=== PATIENT | female | born 1970 | race Caucasian/White ===

== ENCOUNTER 2019-07-04 13:33 | Emergency (ER) | payer OTHER, SELFPAY ==
--- NOTE | ~2019-07-04 | XR_ITS ---
EXAMINATION: XR knee RT 3V DATE: 07/04/2019 14:04 INDICATION: Anterior right knee pain. TECHNIQUE: 3 views of right knee were obtained. COMPARISON: None. FINDINGS: Bone alignment is normal. No fracture. There is moderate osteoarthritis of medial compartme nt and mild osteoarthritis of lateral and patellofemoral compartments. There is a small knee joint ef fusion. IMPRESSION: 1. Moderate right knee osteoarthritis. 2. Small right knee joint effusion. Reviewed, dictated and finalized at location A.
--- NOTE | ~2019-07-04 | XR_ITS ---
EXAMINATION: XR shoulder LT min 2V DATE: 07/04/2019 14:04 INDICATION: Left shoulder pain. Fall. TECHNIQUE: 4 views of left shoulder were obtained. COMPARISON: None. FINDINGS: Bone alignment is normal. No fracture. Glenohumeral joint is normal. There is mild acromioc lavicular joint osteoarthritis. Median sternotomy wires are noted. IMPRESSION: 1. Mild acromioclavicular joint osteoarthritis. Reviewed, dictated and finalized at location A.
[2019-07-04 13:33] VITALS: BP 141/65; PULSE 84; RESP 20; TEMP 36.4; O2SAT 98
--- NOTE | 2019-07-04 13:56 | ED.GENADULT ---
HPI - General Adult General Chief complaint: Extremity Injury, Lower <ANETA Shannon Last Filed: 07/04/19 14:21> Stated complaint: Fall <ANETA Shannon Last Filed: 07/04/19 14:21> Time Seen by Provider: 07/04/19 13:50 <ANETA Shannon Last Filed: 07/04/19 14:21> Source: patient <ANETA Shannon Last Filed: 07/04/19 14:21> Mode of arrival: ambulatory <ANETA Shannon Last Filed: 07/04/19 14:21> Limitations: no limitations <ANETA Shannon Last Filed: 07/04/19 14:21> History of Present Illness HPI narrative: Patient is a 49-year-old female who presents to emergency department for evaluation of right knee pain left shoulder pain that occurred just prior to arrival after tripping over a cable landing on the right knee and injuring the left shoulder noting aching pain to the 2 locations worse with activity and movement presents per EMS has not had anything for pain denies other injuries or complaints or any radicular symptoms or paresthesias <Jerrod Reza PA-C - Last Filed: 07/04/19 14:21> Related Data Allergies/adverse reactions: Allergies Allergy/AdvReac Type Severity Reaction Status Date / Time No Known Allergies Allergy Unverified 01/19/16 14:22 <ANETA Shannon Last Filed: 07/04/19 14:21> Course Course Emergency Course: Patient in the room in no distress aware of case findings treatment plan and diagnosis agreeing to follow-up as directed or to return if symptoms worsen or concerns <ANETA Shannon Last Filed: 07/04/19 14:21> Vital Signs Vital signs: Vital Signs Temperature 36.4 C L 07/04/19 13:33 Pulse Rate 84 07/04/19 13:33 Respiratory Rate 20 07/04/19 13:33 Blood Pressure 141/65 H 07/04/19 13:33 Pulse Oximetry 98 07/04/19 13:33 Temperature 36.4 C L 07/04/19 13:33 Pulse Rate 82 07/04/19 14:55 Respiratory Rate 16 07/04/19 14:55 Blood Pressure 103/84 07/04/19 14:55 Pulse Oximetry 100 07/04/19 14:55 <Jerrod Reza PA-C - Last Filed: 07/04/19 14:21> Vital Signs Temperature 36.4 C L 07/04/19 13:33 Pulse Rate 84 07/04/19 13:33 Respiratory Rate 20 07/04/19 13:33 Blood Pressure 141/65 H 07/04/19 13:33 Pulse Oximetry 98 07/04/19 13:33 Temperature 36.4 C L 07/04/19 13:33 Pulse Rate 82 07/04/19 14:55 Respiratory Rate 16 07/04/19 14:55 Blood Pressure 103/84 07/04/19 14:55 Pulse Oximetry 100 07/04/19 14:55 <Nilsa Rosales MD - Last Filed: 07/04/19 15:33> Medical Decision Making MDM Narrative Medical decision making narrative: Patient in the room in no distress aware of case findings treatment plan and diagnosis. Patients injury or pain is consistent with musculoskeletal etiology. No signs of neurological or vascular compromise on exam. Compartments and tisues are soft without signs of compartment syndrome. Pain is felt appropriate for further evaluation on an outpatient basis. <ANETA Shannon Last Filed: 07/04/19 14:21> Vital Signs Vital Signs: Vital Signs Temperature 36.4 C L 07/04/19 13:33 Pulse Rate 84 07/04/19 13:33 Respiratory Rate 20 07/04/19 13:33 Blood Pressure 141/65 H 07/04/19 13:33 Pulse Oximetry 98 07/04/19 13:33 Temperature 36.4 C L 07/04/19 13:33 Pulse Rate 82 07/04/19 14:55 Respiratory Rate 16 07/04/19 14:55 Blood Pressure 103/84 07/04/19 14:55 Pulse Oximetry 100 07/04/19 14:55 <Jerrod Reza PA-C - Last Filed: 07/04/19 14:21> Vital Signs Temperature 36.4 C L 07/04/19 13:33 Pulse Rate 84 07/04/19 13:33 Respiratory Rate 20 07/04/19 13:33 Blood Pressure 141/65 H 07/04/19 13:33 Pulse Oximetry 98 07/04/19 13:33 Temperature 36.4 C L 07/04/19 13:33 Pulse Rate 82 07/04/19 14:55 Respiratory Rate 16 07/04/19 14:55 Blood Pressure 103/84 07/04/19 14:55 Pulse Oximetry 100 07/04/19 14:55 <Craig
--- NOTE | 2019-07-04 14:11 | PC.NURSE ---
pt does not want to take ibuprofen due to already taking nsaid twice daily. had dose this am. notified
[2019-07-04] MEDS: ACETAMINOPHEN 325 MG TABLET 650 MG PO (14:26)
[2019-07-04 14:55] VITALS: BP 103/84; PULSE 82; RESP 16; O2SAT 100
== END 2019-07-04 15:08 | disposition home or self-care (01) ==
PROVIDERS: Emergency Provider Emergency Medicine; PCP Family Medicine
DX: S89.91XA Unspecified injury of right lower leg, initial encounter (principal); S49.92XA Unspecified injury of left shoulder and upper arm, initial encounter; M17.11 Unilateral primary osteoarthritis, right knee; M19.012 Primary osteoarthritis, left shoulder; W18.09XA Striking against other object with subsequent fall, initial encounter
CPT/HCPCS: 73030; 73562; 99284; A9270